=== PATIENT | female | born 1930 | race African-American/Black ===

== ENCOUNTER 2017-04-28 10:22 | Observation (INO) | payer MEDICARE, BC ==
[~2017-04-28] VITALS: Ht 160 cm; Wt 56.7 kg
[~2017-04-28 10:22] MED LIST: ATOR10TA69 PO; EPLE25TA10 PO; FURO40TA5 PO; HYDR-4135 PO; ISOS30TA6 PO; LACT10SO6 PO; MEMA10TA2 PO; METO100T9 PO; OLAN5TAB26 PO; OMEP20CA10 PO; XALAO EACHEYE
[2017-04-28] MEDS ORDERED: ACETAMINOPHEN 325MG TABLET PO ONE (10:45)
[2017-04-28 11:09] LABS: D-DIMER 4.24 mg/L FEU (<0.50); INR 1.2
[2017-04-28 11:11] LABS: HEMATOCRIT. 39.1 % (36.0-48.0); HEMOGLOBIN. 12.7 g/dL (12.0-16.0); MEAN CORPUSCULAR HEMOGLOBIN 28.5 pg (28.0-32.0); MEAN CORPUSCULAR VOLUME 87.6 fL (81.0-99.0); MEAN PLATELET VOLUME 9.8 fl (7.4-10.4); PLATELET 177 x1000/uL (130-400); RED BLOOD CELL COUNT 4.46 mill/uL (4.2-5.4); RED CELL DISTRIBUTION WIDTH 14.3 % (11.6-14.6)
[2017-04-28 11:13] LABS: CARBON DIOXIDE 35 mEq/L (21-32); CHLORIDE 101 mEq/L (98-107); TROPONIN I < 0.02 ng/mL (0.00-0.04)
[2017-04-28 11:36] LABS: PLATELET ESTIMATE NORMAL
[2017-04-28] MEDS ORDERED: IOHEXOL-350 100 ML BOTTLE ONE (16:10)
[2017-04-28] MEDS ORDERED: CLONIDINE 0.1MG TABLET PO ONE (16:30)
[2017-04-28 17:45] VITALS: BP 168/89
[2017-04-28 20:00] VITALS: BP_SYST 159; BP_SYST 177; BP_DIAS 100; BP_DIAS 87
[2017-04-28] MEDS ORDERED: ENOXAPARIN 40MG/0.4ML SYR SUBCUT SCH (21:15)
[2017-04-28] MEDS ORDERED: DOCUSATE SODIUM 100MG CAPSULE PO PRN (21:15)
[2017-04-28] MEDS ORDERED: ACETAMINOPHEN 325MG TABLET PO PRN (21:15)
[2017-04-28] MEDS ORDERED: ATORVASTATIN CALCIUM 10MG TABLET PO SCH (21:26)
[2017-04-28] MEDS ORDERED: REGADENOSON 0.4 MG/5 ML IV NR (21:28)
[2017-04-28] MEDS ORDERED: ENOXAPARIN 30MG/0.3ML SYR SUBCUT SCH (21:30)
[2017-04-28] MEDS: SODIUM CHLORIDE 0.9% INJ 3ML FLUSH IVF SCH (22:50)
[2017-04-28] MEDS: MEMANTINE HCL 10MG TABLET PO SCH (22:51)
[2017-04-28] MEDS: METOPROLOL TARTRATE 100MG TABLET PO SCH (22:51)
[2017-04-28] MEDS: FUROSEMIDE 40MG TABLET PO SCH (22:52)
[2017-04-28] MEDS: ASPIRIN 81MG TABLET PO SCH (22:52)
[2017-04-28] MEDS: HYDRALAZINE HCL 50MG TABLET PO SCH (22:52)
[2017-04-28] MEDS: ISOSORBIDE MONONITRATE 20MG TABLET PO SCH (22:55)
[2017-04-28] MEDS ORDERED: CLONIDINE 0.1MG TABLET PO PRN (23:45)
[2017-04-29] VITALS (7 sets, daily range): BP systolic 129–156; BP diastolic 67–94
[2017-04-29] MEDS: ISOSORBIDE MONONITRATE 20MG TABLET PO SCH ×2 (07:05→15:43)
[2017-04-29] MEDS: SODIUM CHLORIDE 0.9% INJ 3ML FLUSH IVF SCH ×2 (07:06→19:04)
[2017-04-29] MEDS: HYDRALAZINE HCL 50MG TABLET PO SCH ×2 (07:06→15:44)
[2017-04-29] MEDS ORDERED: OMEPRAZOLE 20MG CAPSULE EXTENDED RELEASE PO SCH (07:20)
[2017-04-29 08:10] LABS: CARBON DIOXIDE 33 mEq/L (21-32); CHLORIDE 103 mEq/L (98-107); CREATINE KINASE 69 IU/L (26-192); CREATINE KINASE MB FRACTION 1.2 ng/mL (0.5-3.6); HDL CHOLESTEROL 44 mg/dL (40-59); LDL CHOLESTEROL 33 mg/dL (5-100); TROPONIN I < 0.02 ng/mL (0.00-0.04)
[2017-04-29] MEDS ORDERED: AMLODIPINE 5MG TABLET PO SCH (09:00)
[2017-04-29] MEDS: FUROSEMIDE 40MG TABLET PO SCH (09:00)
[2017-04-29] MEDS: ASPIRIN 81MG TABLET PO SCH (09:18)
[2017-04-29] MEDS: MEMANTINE HCL 10MG TABLET PO SCH ×2 (09:19→19:02)
[2017-04-29 09:57] LABS: BASOPHILS % 0.5 % (0.0-2.0); EOSINOPHILS % 0.6 % (0.0-5.0); HEMATOCRIT. 37.2 % (36.0-48.0); HEMOGLOBIN. 12.2 g/dL (12.0-16.0); LYMPHOCYTES % 27.7 % (20.0-50.0); MEAN CORPUSCULAR HEMOGLOBIN 28.2 pg (28.0-32.0); MEAN CORPUSCULAR VOLUME 86.1 fL (81.0-99.0); MEAN PLATELET VOLUME 10.3 fl (7.4-10.4); MONOCYTES % 11.1 % (2.0-8.0); NEUTROPHILS % 60.1 % (40.0-76.0); PLATELET 168 x1000/uL (130-400); RED BLOOD CELL COUNT 4.32 mill/uL (4.2-5.4)
[2017-04-29] MEDS ORDERED: POTASSIUM CHLORIDE 20MEQ TABLET SR PO SCH (11:15)
[2017-04-29] MEDS: METOPROLOL TARTRATE 100MG TABLET PO SCH (11:32)
[2017-04-29] MEDS ORDERED: OLANZAPINE 5MG TABLET PO SCH (17:00)
[2017-04-29] MEDS ORDERED: LATANOPROST 0.005% OPHTH DROPS 2.5ML EACHEYE SCH (23:00)
== END 2017-04-29 20:30 ==
LOC: ER 10:28 → 6WST 12:31 → INTOOBSV 12:31 → EDBEDREQ 13:31 → ENRESERV 14:59
PROVIDERS: ADMIT Internal Medicine; ATTEND Internal Medicine
DX: R07.2 Precordial pain (principal); I48.1 Persistent atrial fibrillation; I42.9 Cardiomyopathy, unspecified; E11.22 Type 2 diabetes mellitus with diabetic chronic kidney disease; I13.0 Hypertensive heart and chronic kidney disease with heart failure and stage 1 through stage 4 chronic kidney disease, or unspecified chronic kidney disease; N18.3 Chronic kidney disease, stage 3 (moderate); M48.00 Spinal stenosis, site unspecified; E87.6 Hypokalemia; G89.29 Other chronic pain; F03.90 Unspecified dementia, unspecified severity, without behavioral disturbance, psychotic disturbance, mood disturbance, and anxiety; E78.5 Hyperlipidemia, unspecified; Z86.73 Personal history of transient ischemic attack (TIA), and cerebral infarction without residual deficits
CPT/HCPCS: 36415; 71010; 71275; 80053; 80061; 82550; 82553; 83690; 83735; 83880; 84443; 84484; 85025; 85379; 85610; 85730; 93005; 93970; 96374; 99285; G0378; Q9967; J1650